=== PATIENT | male | born 2000 | race Native Hawaiian/Other Pacific Islander ===

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

== ENCOUNTER 2022-09-01 15:55 | Outpatient (CLI) | payer BC | END 2022-09-01 19:03 | disposition home or self-care (01) | LOC: CT 15:55 | PROVIDERS: ATTEND Physician Assistant | DX: R07.89 Other chest pain (principal); R06.02 Shortness of breath; R05.9 Cough, unspecified | CPT/HCPCS: Q9963 ==